=== PATIENT | male | born 1960 | race Caucasian/White ===

== ENCOUNTER 2016-05-27 08:34 | Inpatient (IN) | payer OTHER ==
[2016-05-27] MEDS ORDERED: ONDANSETRON 4 MG/2ML 2 ML VIAL ONE (08:40)
[2016-05-27] MEDS ORDERED: HYDROMORPHONE HCL 1 MG/ML SYRINGE ONE ×2 (08:40→09:40)
--- NOTE | 2016-05-27 09:38 | RAD ---
LEFT FEMUR 2 VIEWS HISTORY: Status post fall. COMPARISONS: None. TECHNIQUE: Frontal and crosstable lateral views of the left hip. ALIGNMENT: Normal alignment at the knee. FRACTURE: Comminuted intertrochanteric fracture with separate lesser and greater trochanteric fracture fragments. There is associated varus angulation of the femoral shaft. SOFT TISSUES: Associated soft tissue swelling. RADIOOPAQUE FOREIGN BODY: None. IMPRESSION: Intertrochanteric fracture of the left proximal femur with associated varus angulation.
--- NOTE | 2016-05-27 09:38 | RAD ---
PORTABLE CHEST RADIOGRAPH HISTORY: Left-sided hip fracture. Frontal portable chest radiograph dated 05/27/2016.. COMPARISON: None. FINDINGS: FOCAL AIRSPACE OPACITY: No gross airspace consolidation. PLEURAL EFFUSION: None. CARDIOMEDIASTINAL SILHOUETTE: Nonenlarged. PNEUMOTHORAX: None identified. OSSEOUS STRUCTURES: No grossly destructive lesions. IMPRESSION: No acute cardiopulmonary process noted.
--- NOTE | 2016-05-27 09:40 | RAD ---
AP PELVIS HISTORY: Status post fall. Frontal view of the pelvis. PELVIC RING: Grossly intact. HIP ALIGNMENT: Grossly unremarkable. HIP JOINT SPACES: Preserved. FRACTURE: Comminuted intertrochanteric fracture of the left proximal femur with varus angulation of the femoral shaft. IMPRESSION: Comminuted intertrochanteric fracture of the left proximal femur with associated varus angulation.
[2016-05-27 10:25] LABS: ABSOLUTE NEUTROPHIL COUNT 9.1 K/mm3 (1.8-7.7); BASO % 0.2 % (0.2-1.0); HEMATOCRIT 41.4 % (32.0-52.0); HEMOGLOBIN 14.4 gm/l (14.0-18.0); IMM NEUT # 0.1 K/mm3 (0-0.2); IMM NEUT% 0.5 % (0-1); LYMPH # 0.8 (1.0-4.8); LYMPH % 7.8 % (15-45); MEAN CELL VOLUME 94.3 fl (80.0-94.0); MEAN CORPUSCULAR HEMOGLOBIN 32.8 pg (27.0-31.0); MEAN CORPUSCULAR HGB CONC 34.8 g/dl (33.0-37.0); MEAN PLATELET VOLUME 9.3 fl (7.4-10.4); MONO # 0.8 (0.0-0.8); MONO % 7.5 % (4-12); PLATELET COUNT 278 K/mm3 (130-400); RED CELL DISTRIBUTION WIDTH 11.9 % (11.5-14.5)
[2016-05-27 10:42] LABS: ALB/GLOB RATIO 1.3 (>1.0); ALBUMIN 4.3 gm/dL (3.5-5.7); CALCIUM 9.2 mg/dL (8.6-10.3)
[2016-05-27] MEDS ORDERED: HYDROMORPHONE HCL 1 MG/ML SYRINGE IV PRN (11:57)
[2016-05-27] MEDS ORDERED: ONDANSETRON 4 MG/2ML 2 ML VIAL IV PRN (11:58)
[2016-05-27] MEDS ORDERED: PUMP TUBING ONE (12:00)
[2016-05-27] MEDS: SODIUM CHLORIDE 0.9% 1,000 ML IV SCH ×2 (12:07→20:54)
[2016-05-27] MEDS: HYDROMORPHONE HCL 2 MG/ML SYRINGE IV PRN ×3 (14:55→22:28)
[2016-05-27 15:15] VITALS: BMI 28.6
[2016-05-27] MEDS ORDERED: MAGNESIUM HYDROXIDE 30 ML UDCUP PO PRN (16:16)
[2016-05-27] MEDS ORDERED: SODIUM CHLORIDE 0.9% 100 ML IV PRN (16:16)
[2016-05-27] MEDS ORDERED: BISACODYL 10 MG SUP PR PRN (16:16)
[2016-05-27] MEDS ORDERED: BISACODYL 5 MG TABLET.EC PO PRN (16:16)
[2016-05-27] MEDS ORDERED: ACETAMINOPHEN 325 MG TABLET PO PRN (16:16)
[2016-05-27] MEDS ORDERED: BLISTEX LIPSTICK 1 EACH TP PRN (16:16)
[2016-05-27] MEDS ORDERED: MENTHOL/CETYLPYRD 1 EACH LOZENGE PO PRN (16:16)
[2016-05-27] MEDS ORDERED: ALBUTEROL NEB 2.5 MG/3 ML VIAL.NEB NEB PRN (16:19)
[2016-05-27 16:52] LABS: SPECIFIC GRAVITY 1.025 (1.001-1.030); URINE BILIRUBIN NEGATIVE (NEGATIVE); URINE BLOOD NEGATIVE (NEGATIVE); URINE GLUCOSE (UA) NEGATIVE (NEGATIVE); URINE LEUKOCYTE ESTERASE NEGATIVE (NEGATIVE); URINE NITRITE NEGATIVE (NEGATIVE); URINE PROTEIN NEGATIVE (NEGATIVE); URINE UROBILINOGEN NORMAL (0-1 mg/dl)
[2016-05-27 16:55] LABS: URINE APPEARANCE CLEAR; URINE COLOR YELLOW
[2016-05-27 17:08] LABS: URINE RBC 0 /hpf; URINE WBC 0-2 /hpf
[2016-05-27 17:09] LABS: URINE AMORPHOUS SEDIMENT FEW; URINE BACTERIA RARE; URINE EPITHELIAL CELLS 0-2 /hpf; URINE MUCUS 1+
[2016-05-27] MEDS: DOCUSATE SODIUM 100 MG CAPSULE PO SCH (20:56)
--- NOTE | 2016-05-27 22:40 | HP ---
OSCAR LIRIANO [id number] ADMIT DATE: 05/27/2016 CHIEF COMPLAINT: Fall and hip pain. HISTORY OF PRESENT ILLNESS: Oscar is a 55-year-old otherwise healthy male who has not been to a physician in years. He lives up by [employer] [employer]. On the evening of 05/26/2016 at around 10:00 P.M., he had walked down his long driveway to where his pickup was parked since he was unable to get up the driveway in the snow. He was walking down there to retrieve a coffee cup. When he got down there he slipped and fell and landed on his left hip. He had immediate pain and was unable to ambulate. He was able, however, to crawl his way back to his pickup truck and crawl in. There were some blankets as well as a candle in the pickup truck and he was able to stay warm overnight in the pickup truck using these. He did not have the keys to the truck and he was unable to call for help. On the morning then of 05/27/2016 he was able to honk and flash lights to get attention of neighbors who then found him, bilingual case manager were called, and he was subsequently transferred to [facility]. In the ER he was found to be a bit cold, but not hypothermic. He had a left intertrochanteric hip fracture noted. He was subsequently admitted to the Hospitalist Service for medical clearance pending orthopedic consult. REVIEW OF SYSTEMS: Otherwise negative. PAST MEDICAL HISTORY: None. PAST SURGICAL HISTORY: Tonsillectomy and adenoidectomy as a child. ALLERGIES: No known drug allergies. CURRENT MEDICATIONS: None. SOCIAL HISTORY: He smokes about one to two packs a day of cigarettes and has for the last 30 years or so. Occasionally he smokes marijuana. Occasionally he drinks alcohol. He lives alone up near [employer]. He has a son in [place]. No other family. 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 FAMILY HISTORY: Negative. OBJECTIVE: VITAL SIGNS: Stable. He is afebrile. GENERAL: A well-developed and well-nourished male. He is a bit disheveled and poorly groomed, but otherwise in no distress. HEENT: Benign. Oropharynx is moist, with poor dentition. NECK: Supple. No lymphadenopathy. No JVD. LUNGS: Clear. HEART: Regular. ABDOMEN: Soft. EXTREMITIES: Left leg is foreshortened and externally rotated. He is neurovascularly intact otherwise. LABS: CBC with a white count of 10.8, hemoglobin 14.4, hematocrit of 41.4, and platelets of 278. Chemistry panel; sodium 132, potassium 4.7, chloride 103, carbon dioxide 21, BUN of 23, creatinine 1.0, and glucose 130. Urinalysis is pending. EKG: Shows sinus tachycardia, but no ST or T-wave abnormalities. IMAGING: Normal cardiac silhouette. No infiltrates or effusions. Pelvic x-ray shows a left intertrochanteric hip fracture. ASSESSMENT: Ground-level fall, with left intertrochanteric hip fracture. PLAN: He is cleared for surgery. Orthopedics to evaluate. Anticipate going to the operating room in the morning. Will keep him NPO after midnight. Otherwise supportive care, with IV medications as needed for pain and nausea. DVT prophylaxis will be as per orthopedics. Further care as dictated by clinical course.
[2016-05-28] MEDS: HYDROMORPHONE HCL 2 MG/ML SYRINGE IV PRN ×5 (02:35→20:22)
[2016-05-28] MEDS: SODIUM CHLORIDE 0.9% 1,000 ML IV SCH ×2 (05:30→16:59)
[2016-05-28 07:19] LABS: HEMATOCRIT 37.1 % (32.0-52.0); HEMOGLOBIN 12.8 gm/l (14.0-18.0); MEAN CELL VOLUME 96.6 fl (80.0-94.0); MEAN CORPUSCULAR HEMOGLOBIN 33.3 pg (27.0-31.0); MEAN CORPUSCULAR HGB CONC 34.5 g/dl (33.0-37.0); RED CELL DISTRIBUTION WIDTH 12.2 % (11.5-14.5)
[2016-05-28 07:30] LABS: CALCIUM 8.9 mg/dL (8.6-10.3)
[2016-05-28] MEDS: DOCUSATE SODIUM 100 MG CAPSULE PO SCH ×2 (10:00→20:22)
[2016-05-28] MEDS: PANTOPRAZOLE 40 MG TABLET DR PO SCH (10:00)
--- NOTE | 2016-05-28 10:21 | CONS ---
Oscar Hart [id number] DATE OF CONSULTATION: 05/28/2016 HISTORY: This is a 55-year-old gentleman admitted by the hospitalist service for a fall with onset of hip pain that occurred on the evening of 05/26/2016. He was brought to the emergency department on the morning of 05/27/2016 after he was found down by neighbors. Emergency room review and x-ray's demonstrated intertrochanteric left femur fracture. He was admitted to the hospitalist service and orthopedics was consulted. Patient reports he has no antecedent history of pain in this hip. He fell directly onto the hip while he was out in the snow. He does not have any other significant extremity complaints and he has no history of surgery in this area. REVIEW OF SYSTEMS: Otherwise negative. PAST MEDICAL HISTORY: None. PAST SURGICAL HISTORY: Tonsillectomy and adenoidectomy as a child. PHYSICAL EXAMINATION: GENERAL: This is a well developed, well nourished male in no acute distress. He is awake, alert, and conversant throughout the encounter. MUSCULOSKELETAL: Focused musculoskeletal examination demonstrates external rotation and shortening of the left lower extremity. He has well perfused leg with intact sensation. Motion at the hip is not tested secondary to his injury. He has 5/5 strength in his distal musculature on this left leg and brisk capillary refill. Review of x-ray's shows intertrochanteric left fracture and varus malalignment with what appears to be multiple fragments at this level including lesser trochanter. ASSESSMENT: A 55-year-old gentleman with a acute left intertrochanteric hip fracture who presented to the hospital approximately 16 hours out from his injury. PLAN: After discussion with the patient, the plan will be for closed reduction and intramedullary nailing with a cephalomedullary device to allow him to begin weightbearing as soon as possible. He will need to stay with friends after he leaves the hospital because he is not going to be able to take care of everything by himself at home especially with the difficult to assess living situation there. In the meantime will get him up with physical therapy once he has his surgery done and he will be partial weightbearing. I did discuss the possibility that given the comminution of his fracture it may have compromised his vascular supply to the head of the femur. This is an intertrochanteric fracture, no a basilar or a true femoral neck fracture, so that risk is significantly decreased and in addition he presented to the hospital well beyond the normal desired 6 hour window for addressing an intracapsular hip fracture which is the reason that we felt it was appropriate to delay until the day after admission to ensure that he was medically cleared. He understands these risks and the possibility of further complications down the road and he is eager to proceed with surgery. Informed consent was obtained and documented in the chart. He is going to be taken to the operating room today for a postdated procedure. JOB: [id number]
[2016-05-28] MEDS ORDERED: LACTATED RINGERS 1,000 ML ONE (10:53)
[2016-05-28] MEDS ORDERED: FENTANYL 100 MCG/2 ML VIAL ONE (12:23)
[2016-05-28] MEDS ORDERED: MIDAZOLAM HCL 1 MG/ML 2ML VIAL ONE (12:23)
[2016-05-28] MEDS ORDERED: BUPIVACAINE 0.5% (PRES FREE) 30 ML VIAL ONE (12:31)
[2016-05-28] MEDS ORDERED: SPINAL PROCEDURAL TRAY 1 EACH ONE (12:31)
[2016-05-28] MEDS ORDERED: KETAMINE HCL 50 MG/ML 1 ML DOSE ONE (12:33)
[2016-05-28] MEDS ORDERED: PROPOFOL 20 ML IV ONE ×3 (13:13→13:19)
[2016-05-28] MEDS ORDERED: CEFAZOLIN SODIUM 1,000 MG VIAL ONE (13:15)
[2016-05-28] MEDS ORDERED: PROMETHAZINE HCL 25 MG/ML VIAL IM PRN (14:15)
[2016-05-28] MEDS ORDERED: MORPHINE SULFATE 4 MG/ML SYRINGE IV PRN (14:15)
[2016-05-28] MEDS ORDERED: ONDANSETRON 4 MG/2ML 2 ML VIAL IV PRN ×2 (14:15→16:05)
[2016-05-28] MEDS ORDERED: FENTANYL 100 MCG/2 ML VIAL IV PRN (14:15)
[2016-05-28] MEDS ORDERED: LACTATED RINGERS 1,000 ML IV SCH (14:15)
--- NOTE | 2016-05-28 15:18 | PCMBPN ---
Brief Post Op Note: Date of Procedure: 05/28/16 Start Time: 1300 Preoperative Diagnosis: 1. left femur intertrochanteric fracture Postoperative Diagnosis: 1. Same Procedure: left femur IM nail with cephalomedullary screw Surgeon: Elvin Barr MD Assist: Antonette Hwang Anesthesia: Bert Rees (spinal) Findings: as above Condition: stable to PACU Complications: none IV Fluids: 1000 mLs of LR Urine Output: 200 mLs Estimated Blood Loss: 100 mLs Tourniquet Time: none Specimens: none Implants: [employer] TFN [id number] nail, 130 deg with 105mm helical blade Drains: none Elvin Barr MD 5
--- NOTE | 2016-05-28 15:42 | RAD ---
Examination: HIP LEFT 2 VIEWS PORTABLE Clinical indication: ORIF intertrochanteric fracture. Fluoroscopic assistance provided. Comparisons: 05/27/2016. Findings: Fluoroscopic assistance was provided for ORIF intertrochanteric fracture left hip. Fluoroscopy time was 223.3 seconds. 3 fluoroscopic images were obtained. Submitted images exhibit a compression screw with a long intramedullary fixation crystal is fixed by 2 distal fixation screws traversing the femoral neck and diaphysis. Moderately comminuted intertrochanteric fracture is noted. Alignment is near anatomic. IMPRESSION: Fluoroscopic assistance provided as described above. There is satisfactory radiographic positioning following ORIF intertrochanteric fracture.
--- NOTE | 2016-05-28 15:49 | RAD ---
EXAMINATION : FEMUR LEFT HISTORY: Status post ORIF intertrochanteric fracture left femur. Subsequent encounter. COMPARISONS: Prior study 05/27/2016. Fluoroscopy of 05/28/2016. TECHNIQUE: 2 views of the left femur were obtained. FINDINGS: Comminuted intertrochanteric fracture of the proximal left femur is again noted. There is a butterfly fragment of the lesser trochanter. There is a compression screw and intramedullary fixation crystal with appears satisfactorily positioned. Alignment is near anatomic. Soft tissue changes but with recent surgery are noted. IMPRESSION: Satisfactory immediate postoperative appearance ORIF comminuted intertrochanteric fracture proximal left femur.
[2016-05-28] MEDS ORDERED: MENTHOL/CETYLPYRD 1 EACH LOZENGE PO PRN (16:05)
[2016-05-28] MEDS ORDERED: BLISTEX LIPSTICK 1 EACH TP PRN (16:05)
[2016-05-28] MEDS ORDERED: PUMP TUBING ONE (16:54)
--- NOTE | 2016-05-28 18:58 | PDOC43 ---
- Subjective Chief Complaint: Left leg pain Subjective: Reports Pain Tolerable, Denies Vomiting, Denies Fever - Objective Vital Signs Temperature 98.2 F 05/28/16 16:30 Pulse Rate 104 05/28/16 17:45 Respiratory Rate 20 05/28/16 17:45 Blood Pressure 112/75 05/28/16 17:45 O2 Saturation by Pulse Oximetry 97 05/28/16 17:45 Oxygen Delivery Method Nasal Cannula Oxygen Flow Rate 2 Intake and Output 05/27/16 05/28/16 05/29/16 06:59 06:59 06:59 Intake Total 1040 1150 Output Total 675 350 Balance 365 800 General: Alert, Oriented x3, Cooperative, No Acute Distress HEENT: Mucous membr. moist/pink Lungs: Clear to Auscultation Bilaterally Cardiovascular: Regular Rate and Rhythm Abdomen: Soft, Normal Bowel Sounds, Non-Distended, No Tenderness Extremities: No Edema Peripheral Pulses: Dorsalis Pedis (L): 2+, Dorsalis Pedis (R): 2+ Skin: Warm, Dry, Intact Wound: Dressing Clean/Dry/Intact Laboratory 05/28/16 06:34 05/28/16 06:34 05/28/16 06:34 RBC 3.84 L MCV 96.6 H MCH 33.3 H Current Medications: Current meds reviewed in EMR. - Problems: Assessment/Plan (1) Femur fracture, left Qualifiers: Encounter type: initial encounter Femur location: intertrochanteric Fracture type: closed Fracture alignment: displaced Qualifier Code: ( S72.142A) Displaced intertrochanteric fracture of left femur, initial encounter for closed fracture Status: Acute Assessment/Plan: S/P ORIF this am by Dr Barr, doing well, no active medical problems- management per ortho team, will follow VTE Prophylaxis: [facility]. measures Disposition: To be determined
[2016-05-28] MEDS: OXYCODONE/ACETAMINOPHEN 5/325 MG TABLET PO PRN (19:16)
[2016-05-29] MEDS: HYDROMORPHONE HCL 2 MG/ML SYRINGE IV PRN (00:31)
[2016-05-29] MEDS: OXYCODONE/ACETAMINOPHEN 5/325 MG TABLET PO PRN ×5 (00:31→21:11)
[2016-05-29] MEDS: TRAZODONE HCL 50 MG TABLET PO PRN (00:39)
[2016-05-29] MEDS: SODIUM CHLORIDE 0.9% 1,000 ML IV SCH (07:33)
[2016-05-29] MEDS: ASPIRIN (ENTERIC COATED) 325 MG TABLET.EC PO SCH (08:29)
[2016-05-29] MEDS: PANTOPRAZOLE 40 MG TABLET DR PO SCH (08:29)
[2016-05-29] MEDS: DOCUSATE SODIUM 100 MG CAPSULE PO SCH ×2 (08:30→21:12)
[2016-05-29] MEDS ORDERED: SODIUM CHLORIDE 0.9% 500 ML IV SCH (13:15)
[2016-05-29] MEDS ORDERED: PUMP TUBING ONE (14:00)
--- NOTE | 2016-05-29 15:31 | PDOC43 ---
- Subjective Chief Complaint: Left leg pain elevated heart rate worse with standing today Subjective: Reports Pain Tolerable, Reports Tolerating Diet Well, Denies Vomiting, Denies Fever - Objective Vital Signs Temperature 98.0 F 05/29/16 11:54 Pulse Rate 105 05/29/16 11:54 Respiratory Rate 18 05/29/16 11:54 Blood Pressure 123/78 05/29/16 11:54 O2 Saturation by Pulse Oximetry 92 05/29/16 11:54 Oxygen Delivery Method Room Air Oxygen Flow Rate 0 Intake and Output 05/28/16 05/29/16 05/30/16 06:59 06:59 06:59 Intake Total 1040 3982 Output Total 675 800 Balance 365 3182 General: Alert, Oriented x3, Cooperative, No Acute Distress HEENT: Mucous membr. moist/pink Lungs: Clear to Auscultation Bilaterally Cardiovascular: Other (reg. tachy) Abdomen: Soft, Normal Bowel Sounds, Non-Distended, No Tenderness Extremities: Other (some early blistering of tips of digits 1,2,3 on left hand) , No Edema Peripheral Pulses: Dorsalis Pedis (L): 2+, Dorsalis Pedis (R): 2+ Skin: Warm, Dry, Erythema (some early blistering and erythema involving tips of digits 1,2,3) Neurological: Normal Speech, Normal Reflexes, Cranial Nerves 3-12 Intact Psych/Mental Status: Normal Affect Laboratory 05/28/16 06:34 05/28/16 06:34 Current Medications: Current meds reviewed in EMR. - Problems: Assessment/Plan (1) Femur fracture, left Qualifiers: Encounter type: initial encounter Femur location: intertrochanteric Fracture type: closed Fracture alignment: displaced Qualifier Code: ( S72.142A) Displaced intertrochanteric fracture of left femur, initial encounter for closed fracture Status: Acute Assessment/Plan: S/P ORIF on 05/[address] Barr, doing well-management per ortho team, will follow (2) Tachycardia with heart rate 100-120 beats per minute Status: Acute Assessment/Plan: Sinus tachy suspect due to hypovolemia, alcohol usage Hx does not support high likelihood of alcohol withdrawal-fluid bolus and follow closely VTE [facility] plus [facility] Disposition: Plan is to go home in 1-2 days with supportive friends-awaiting full PT/OT assessments
[2016-05-30] MEDS: OXYCODONE/ACETAMINOPHEN 5/325 MG TABLET PO PRN ×5 (02:22→20:04)
[2016-05-30] MEDS: ASPIRIN (ENTERIC COATED) 325 MG TABLET.EC PO SCH (09:17)
[2016-05-30] MEDS: DOCUSATE SODIUM 100 MG CAPSULE PO SCH ×2 (09:17→20:04)
[2016-05-30] MEDS: PANTOPRAZOLE 40 MG TABLET DR PO SCH (09:18)
--- NOTE | 2016-05-30 12:25 | PDOC43 ---
- Subjective Chief Complaint: Left leg pain Doing well, leg pain has worsened today. His knee and ankle are sore after working with therapy. Denies any shortness of breath, chest pain or abdominal pain. Has flatus no bowel movement yet. Subjective: Reports Pain Tolerable, Reports Tolerating Diet Well, Reports Adequate Oral Intake, Reports Flatus, Reports Urinating Without Difficulty, Denies Bowel Movement, Denies Shortness of Breath, Denies Cough, Denies Chest Pain, Denies Abdominal Pain, Denies Nausea, Denies Vomiting - Objective Vital Signs Temperature 99.4 F 05/30/16 08:08 Pulse Rate 101 05/30/16 08:08 Respiratory Rate 18 05/30/16 08:08 Blood Pressure 115/78 05/30/16 08:08 O2 Saturation by Pulse Oximetry 98 05/30/16 08:56 Oxygen Delivery Method Room Air Oxygen Flow Rate 0 Intake and Output 05/28/16 05/29/16 05/30/16 23:59 23:59 23:59 Intake Total 2190 4432 1600 Output Total 800 450 500 Balance 1390 3982 1100 General: Alert, Oriented x3, Cooperative, No Acute Distress HEENT: Atraumatic, PERRLA, EOMI, Mucous membr. moist/pink Lungs: Clear to Auscultation Bilaterally, Normal Air Movement, Other (no crackle or wheeze) Cardiovascular: Regular Rate and Rhythm, Normal S1, Normal S2 Abdomen: Soft, Mild Distention, No Rigid, No Tenderness, No Rebounding Extremities: Tenderness, No Cyanosis, No Edema Peripheral Pulses: Posterior Tibialis (L): 2+, Posterior Tibialis (R): 2+ Neurological: Normal Speech Psych/Mental Status: Normal Mood Laboratory 05/28/16 06:34 05/28/16 06:34 Current Medications: Current meds reviewed in EMR. - Problems: Assessment/Plan (1) Femur fracture, left Qualifiers: Encounter type: initial encounter Femur location: intertrochanteric Fracture type: closed Fracture alignment: displaced Qualifier Code: ( S72.142A) Displaced intertrochanteric fracture of left femur, initial encounter for closed fracture Status: Acute Assessment/Plan: S/P ORIF on 05/[address] Barr, doing well-management per ortho team, will follow (2) Frostbite of left upper extremity Status: Acute Assessment/Plan: treat symptomatically (3) Tachycardia with heart rate 100-120 beats per minute Status: Acute Assessment/Plan: Sinus tachy suspect due to hypovolemia, alcohol usage Hx does not support high likelihood of alcohol withdrawal-fluid bolus and follow closely VTE Prophylaxis: [facility]. measures plus aspirin Disposition: Plan is to go home in 1-2 days with supportive friends-awaiting full PT/OT assessments
[2016-05-30] MEDS: TRAZODONE HCL 50 MG TABLET PO PRN (20:04)
[2016-05-31] MEDS: OXYCODONE/ACETAMINOPHEN 5/325 MG TABLET PO PRN ×4 (00:01→17:21)
[2016-05-31] MEDS: PANTOPRAZOLE 40 MG TABLET DR PO SCH (08:38)
[2016-05-31] MEDS: ASPIRIN (ENTERIC COATED) 325 MG TABLET.EC PO SCH (08:38)
[2016-05-31] MEDS: DOCUSATE SODIUM 100 MG CAPSULE PO SCH (08:38)
--- NOTE | 2016-05-31 12:09 | PDOC43 ---
- Subjective Chief Complaint: Left leg pain RN reports pt ambulating ok, eating ok. Believed to have had BM. Patient reports eager to go home. No c/o. Fingers healing well. Pt reports swelling of L thigh improving, but still noticeable. - Objective Vital Signs Temperature 98.2 F 05/31/16 07:56 Pulse Rate 86 05/31/16 07:56 Respiratory Rate 16 05/31/16 09:00 Blood Pressure 143/92 05/31/16 07:56 O2 Saturation by Pulse Oximetry 96 05/31/16 08:00 Oxygen Delivery Method Room Air Oxygen Flow Rate 0 Vital Signs Last 12 Hours Temp Pulse Resp BP Pulse Ox 05/31/16 09:00 16 05/31/16 08:00 96 05/31/16 07:56 98.2 F 86 16 143/92 96 05/31/16 02:00 97.9 F 102 20 122/80 96 Intake and Output 05/29/16 05/30/16 05/31/16 23:59 23:59 23:59 Intake Total 4432 3200 800 Output Total 450 2675 1150 Balance 3982 525 -350 General: Alert HEENT: Atraumatic Lungs: Clear to Auscultation Bilaterally, Normal Air Movement Cardiovascular: Regular Rate and Rhythm Abdomen: Soft, Normal Bowel Sounds, Non-Distended Extremities: Other (L fingertips with mild ecchymoses at tips, c/w frostbite, healing appropriately. L thigh with some fullness, not eileen tender. Dressing CDI. Lower legs unrem bilat.) Skin: Normal Color Wound: Dressing Clean/Dry/Intact Neurological: Normal Speech Psych/Mental Status: Normal Affect Laboratory 05/28/16 06:34 05/28/16 06:34 Current Medications: Current meds reviewed in EMR. Active Medications Acetaminophen (Tylenol) 650 mg PO Q6H PRN PRN Reason: Pain or Temperature > 100.5 F Albuterol Sulfate (Ventolin Inhalation Solution (Dose)) 2.5 mg NEB Q2H PRN PRN Reason: Wheezing Aspirin (Ecotrin) 325 mg PO DAILY SANTY Last Admin: 05/31/16 08:38 Dose: 325 mg Benzocaine/Menthol (Cepacol) 1 each PO PRN PRN PRN Reason: Sore Throat Bisacodyl (Dulcolax) 10 mg [place] DAILY PRN PRN Reason: Constipation Bisacodyl (Dulcolax) 5 mg PO DAILY PRN PRN Reason: Constipation Docusate Sodium (Colace) 100 mg PO BID [facility] Last Admin: 05/31/16 08:38 Dose: 100 mg Hydromorphone HCl (Dilaudid) 1 - 2 mg IV Q2H PRN PRN Reason: Pain Last Admin: 05/27/16 12:06 Dose: 1 mg Hydromorphone HCl (Dilaudid) 1 - 2 mg IV Q2H PRN PRN Reason: Pain Last Admin: 05/29/16 00:31 Dose: 2 mg Sodium Chloride (Sodium Chloride 0.9%) 100 mls @ 25 mls/hr IV PRN PRN PRN Reason: Flush Magnesium Hydroxide (Milk Of Magnesia) 30 ml PO DAILY PRN PRN Reason: Constipation Last Admin: 05/30/16 09:18 Dose: 30 ml Ondansetron HCl (Zofran) 4 mg IV Q6H PRN PRN Reason: Nausea/Vomiting Oxycodone/Acetaminophen (Percocet 5/325) 1 - 2 tab PO Q4H PRN PRN Reason: Pain (Moderate) Last Admin: 05/31/16 08:44 Dose: 2 tab Pantoprazole Sodium (Protonix) 40 mg PO DAILY [facility] Last Admin: 05/31/16 08:38 Dose: 40 mg Petrolatum/Paraffin/Mineral Oil (Blistex) 1 each TP PRN PRN PRN Reason: Dry and/or chapped lips Sodium Chloride (Normal Saline 10ml Flush) 10 ml IV Q8HR [facility] Last Admin: 05/31/16 08:38 Dose: 10 ml Sodium Chloride (Normal Saline 10ml Flush) 10 ml IV PRN PRN Last Admin: 05/29/16 14:05 Dose: 10 ml Trazodone HCl (Desyrel) 25 mg PO BEDTIME PRN PRN Reason: Insomnia Last Admin: 05/30/16 20:04 Dose: 25 mg - Problems: Assessment/Plan (1) Femur fracture, left Qualifiers: Encounter type: initial encounter Femur location: intertrochanteric Fracture type: closed Fracture alignment: displaced Qualifier Code: ( S72.142A) Displaced intertrochanteric fracture of left femur, initial encounter for closed fracture Status: Acute Assessment/Plan: S/P ORIF on 1/[address] Barr, doing well-management per ortho team, will follow Anticipate DC to friend's today 05/31 (2) Frostbite of left upper extremity Status: Acute Assessment/Plan: treat symptomatically (3) Tachycardia with heart rate 100-120 beats per minute Status: Resolved Assessment/Plan: Sinus tachy suspect due to hypovolemia. Not felt to be in alcohol withdrawal. VTE Prophylaxis: [facility]. measures plus aspirin Disposition: Plan is to go home with supportive friends-appreciate PT/OT assessments
[2016-05-31 13:48] VITALS: BP 142/95
--- NOTE | 2016-05-31 13:53 | PDOC43 ---
- Subjective Subjective: Reports Pain Tolerable, Denies Flatus, Denies Chest Pain, Denies Shortness of Breath, Denies Nausea, Denies Vomiting - Objective Vital Signs Temperature 99.4 F 05/30/16 08:08 Pulse Rate 101 05/30/16 08:08 Respiratory Rate 18 05/30/16 08:08 Blood Pressure 115/78 05/30/16 08:08 O2 Saturation by Pulse Oximetry 98 05/30/16 08:56 Oxygen Delivery Method Room Air Oxygen Flow Rate 0 Laboratory 05/28/16 06:34 05/28/16 06:34 Active Medication Orders Category Date Time Status Acetaminophen [Tylenol] Med 05/27/16 16:16 Active 650 mg PO Q6H PRN Albuterol Sulf Neb 2.5mg/3ml [Ventolin Inhalation Med 05/27/16 16:19 Active Solution (Dose)] 2.5 mg NEB Q2H PRN Aspirin (Enteric Coated) [Ecotrin] Med 05/29/16 09:00 Active 325 mg PO DAILY Bisacodyl [Dulcolax] Med 05/27/16 16:16 Active 10 mg [place] DAILY PRN Bisacodyl [Dulcolax] Med 05/27/16 16:16 Active 5 mg PO DAILY PRN Docusate Sodium [Colace] Med 05/27/16 21:00 Active 100 mg PO BID Hydromorphone HCl [Dilaudid] Med 05/27/16 11:57 Active 1 - 2 mg IV Q2H PRN Hydromorphone HCl [Dilaudid] Med 05/27/16 12:03 Active 1 - 2 mg IV Q2H PRN Lip [place] [Blistex] Med 05/28/16 16:05 Active 1 each TP PRN PRN Magnesium Hydroxide [Milk of Magnesia] Med 05/27/16 16:16 Active 30 ml PO DAILY PRN Menthol/Cetylpyridinium [Cepacol] Med 05/28/16 16:05 Active 1 each PO PRN PRN Ondansetron 4 mg/2ml Vial [Zofran] Med 05/28/16 16:05 Active 4 mg IV Q6H PRN Oxycodone HCl/Acetaminophen [Percocet 5/325] Med 05/28/16 16:05 Active 1 - 2 tab PO Q4H PRN Pantoprazole Sodium [Protonix] Med 05/28/16 09:00 Active 40 mg PO DAILY Sodium Chloride 0.9% 100 ml Med 05/27/16 16:16 Active IV PRN Sodium Chloride 0.9% Flush [Normal Saline 10ml Flush] Med 05/27/16 11:16 Active 10 ml IV PRN PRN Sodium Chloride 0.9% Flush [Normal Saline 10ml Flush] Med 05/27/16 17:00 Active 10 ml IV Q8HR Trazodone HCl [Desyrel] Med 05/28/16 16:05 Active 25 mg PO BEDTIME PRN Intake and Output 05/29/16 05/30/16 05/31/16 06:59 06:59 06:59 Intake Total 3982 3200 Output Total 800 500 Balance 3182 2700 General: No Acute Distress Neurological: Grossly Intact, Alert, Oriented x 4 Psych/Mental Status: Normal Affect Peripheral Pulses: Left Posterior Tibialis: 3+/4+, Left Dorsalis Pedis: 3+/4+ - Left Lower Extremity Incision: Drainage, Well Approximated, Reynolds Intact, No Erythema, No Rash Motor: Extensor Hallucis Longus: 5/5, Tibialis Anterior: 5/5, Gastrocnemius: 5/5 Gross Sensation to Light Touch: Present: Superficial Peroneal Nerve, Sural Nerve , Saphenous Nerve - Problems (1) Femur fracture, left Qualifiers: Encounter type: initial encounter Femur location: intertrochanteric Fracture type: closed Fracture alignment: displaced Qualifier Code: ( S72.142A) Displaced intertrochanteric fracture of left femur, initial encounter for closed fracture Status: Acute - Additional Comments POD #2 s/p ORIF intertrochanteric fracture left femur t. 99.4 Experiencing some post-op pain with movement. Left hip dressing changed. Mild drainage noted. Will work with PT to gait train. Does not to go to SNF, prefers to move in with friend. Likely transfer on Wednesday. Continue with pain management. Appreciate hospitalist involvement.
--- NOTE | 2016-05-31 14:03 | PDOC43 ---
- Subjective Subjective: Reports Pain Tolerable, Denies Flatus, Denies Chest Pain, Denies Shortness of Breath, Denies Nausea, Denies Vomiting, Denies Fever - Objective Vital Signs Temperature 98.2 F 05/31/16 13:47 Pulse Rate 93 05/31/16 13:47 Respiratory Rate 17 05/31/16 13:47 Blood Pressure 142/95 05/31/16 13:47 O2 Saturation by Pulse Oximetry 98 05/31/16 13:47 Oxygen Delivery Method Room Air Oxygen Flow Rate 0 Laboratory 05/28/16 06:34 05/28/16 06:34 Active Medication Orders Category Date Time Status Acetaminophen [Tylenol] Med 05/27/16 16:16 Active 650 mg PO Q6H PRN Albuterol Sulf Neb 2.5mg/3ml [Ventolin Inhalation Med 05/27/16 16:19 Active Solution (Dose)] 2.5 mg NEB Q2H PRN Aspirin (Enteric Coated) [Ecotrin] Med 05/29/16 09:00 Active 325 mg PO DAILY Bisacodyl [Dulcolax] Med 05/27/16 16:16 Active 10 mg CO DAILY PRN Bisacodyl [Dulcolax] Med 05/27/16 16:16 Active 5 mg PO DAILY PRN Docusate Sodium [Colace] Med 05/27/16 21:00 Active 100 mg PO BID Hydromorphone HCl [Dilaudid] Med 05/27/16 11:57 Active 1 - 2 mg IV Q2H PRN Hydromorphone HCl [Dilaudid] Med 05/27/16 12:03 Active 1 - 2 mg IV Q2H PRN Lip [place] [Blistex] Med 05/28/16 16:05 Active 1 each TP PRN PRN Magnesium Hydroxide [Milk of Magnesia] Med 05/27/16 16:16 Active 30 ml PO DAILY PRN Menthol/Cetylpyridinium [Cepacol] Med 05/28/16 16:05 Active 1 each PO PRN PRN Ondansetron 4 mg/2ml Vial [Zofran] Med 05/28/16 16:05 Active 4 mg IV Q6H PRN Oxycodone HCl/Acetaminophen [Percocet 5/325] Med 05/28/16 16:05 Active 1 - 2 tab PO Q4H PRN Pantoprazole Sodium [Protonix] Med 05/28/16 09:00 Active 40 mg PO DAILY Sodium Chloride 0.9% 100 ml Med 05/27/16 16:16 Active IV PRN Sodium Chloride 0.9% Flush [Normal Saline 10ml Flush] Med 05/27/16 11:16 Active 10 ml IV PRN PRN Sodium Chloride 0.9% Flush [Normal Saline 10ml Flush] Med 05/27/16 17:00 Active 10 ml IV Q8HR Trazodone HCl [Desyrel] Med 05/28/16 16:05 Active 25 mg PO BEDTIME PRN Intake and Output 05/30/16 05/31/16 06/01/16 06:59 06:59 06:59 Intake Total 3200 2400 Output Total 500 3325 Balance 2700 -925 General: Afebrile, No Acute Distress Skin: Normal Color, Warm, Dry Neurological: Grossly Intact, Alert, Oriented x 4 Psych/Mental Status: Normal Affect, Normal Mood Peripheral Pulses: Left Posterior Tibialis: 3+/4+, Left Dorsalis Pedis: 3+/4+ - Left Lower Extremity Incision: Dressing Clean/Dry/Intact, No Drainage Motor: Extensor Hallucis Longus: 5/5, Tibialis Anterior: 5/5, Gastrocnemius: 5/5 , Peroneals: 5/5, Quadriceps: 4/5 Gross Sensation to Light Touch: Present: Medial Plantar Nerve, Lateral Plantar Nerve, Sural Nerve - Problems (1) Femur fracture, left Qualifiers: Encounter type: initial encounter Femur location: intertrochanteric Fracture type: closed Fracture alignment: displaced Qualifier Code: ( S72.142A) Displaced intertrochanteric fracture of left femur, initial encounter for closed fracture Status: Acute - Additional Comments POD #2 s/p ORIF intertrochanteric fracture left femur t. 99.4 Experiencing some post-op pain with movement. Left hip dressing changed. Mild drainage noted. Will work with PT to gait train. Does not to go to SNF, prefers to move in with friend. Likely transfer on Wednesday. Continue with pain management. Appreciate hospitalist involvement. POD # 3 s/p ORIF intertrochanteric fracture left femur Experiencing less hip pain today. Movement improving. Pt. being discharged today; will go to friend's home. Appointment with Dr. Barr on June 13, 2016. Discharge Rxs. and instructions given to patient. Appreciate hospitalist involvement.
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
--- NOTE | 2016-06-01 12:06 | OP ---
SUSIE LIRIANO : 1960 V [id number] DATE OF PROCEDURE: May 28, 2016 PREOPERATIVE DIAGNOSIS: Left femur intertrochanteric fracture. POSTOPERATIVE DIAGNOSIS: SAME PROCEDURE: LEFT FEMUR IM NAIL WITH CEPHALOMEDULLARY SCREW SURGEON: Elvin Barr M.D. [employer] MANAGER: Antonette Hwang ANESTHESIA: Spinal per Bert Rees ESTIMATED BLOOD LOSS: 100 mL FLUIDS: 1000 mL of crystalloid URINE OUTPUT: 200 mL SPECIMENS: None TOURNIQUET TIME: None IMPLANTS: Synthes TFN 360 x 12mm nail at 130 degrees with 105mm helicon blade and 2 interlock screws distally. DRAINS: None INDICATIONS: This is a 55-year-old gentleman who came through the ED after a fall onto his left hip sustaining an intertrochanteric fracture. He was admitted by the hospitalist and cleared medically and then taken to the OR for surgery in order to restore his ability to bear weight on this injured left leg. Risks, benefits and alternatives were discussed with him at length prior to the surgery and he elected to proceed. Informed consent was obtained and documented in the chart. PROCEDURE DESCRIPTION: Patient was identified in the preop holding area, marked with an indelible marker by the OR surgeon and then taken to the OR where he was placed in a supine position on the OR table. He was rolled onto his side. Spinal anesthetic was administered. He was then positioned on the fracture table with a peroneal post in place in scissor formation. He was prepped and draped in the usual sterile fashion for surgery. All bony prominences were padded. He received perioperative antibiotics. Final operative timeout was performed and confirmed by all member of the operative team. The C-arm was draped and brought onto the field. The starting point for an IM nail for his femur was localized and then a stab incision was made and the starting guide pin was inserted into the proximal portion of the femur beginning in the piriformis fossa and entering the IM canal. Starting reamer was used over the top of this guide pin to gain access to the IM space and then our long guide pin was passed all the way down coming to rest in the physeal scar at the distal femur. Length of nail was measured and then we began reaming with flexible reamers starting with a 10 and reaming up to a 13, which gave us good chatter at the diaphysis. A 360 x 12mm TFN was loaded onto the insertion handle and impacted into the IM canal with good fit. The leg was under traction during this procedure to reduce the fracture. At this point we then checked our rotation using the proximal targeting handle, made an additional incision further down the leg to allow access for the cephalomedullary guide pin. A guide pin was driven up into the center-center position of femoral head. Length was checked and then it was drilled over with the access drill and a 105mm Helico blade was placed with adequate position within the femoral head. At this point, the proximal targeting components were removed and traction was released from the leg. The perfect circles technique was used to place 2 interlocking screws distally through stab incisions. All wounds were copiously irrigated with sterile saline and the incisions closed with nylon. A sterile dressing of Xeroform, fluffs, ABD's and Medipore tape was applied. Patient was awakened from his sedation, was transferred to a stretcher and taken postoperatively to post anesthesia care in stable condition. There were no observed intraoperative complications during the procedure. JED/bakari CC: [facility]
== END 2016-05-31 18:40 | disposition home or self-care (01) | DRG 482 ==
LOC: ED 08:34 → MS 11:12
PROVIDERS: ADMIT Family Medicine; ATTEND Family Medicine
PROC: 0QS704Z Reposition Left Upper Femur with Internal Fixation Device, Open Approach (ICD-10-PCS; principal; 2016-05-28)
DX: S72.142A Displaced intertrochanteric fracture of left femur, initial encounter for closed fracture (principal); W19.XXXA Unspecified fall, initial encounter; Y92.014 Private driveway to single-family (private) house as the place of occurrence of the external cause; X31.XXXA Exposure to excessive natural cold, initial encounter; R00.0 Tachycardia, unspecified; F17.210 Nicotine dependence, cigarettes, uncomplicated; F12.90 Cannabis use, unspecified, uncomplicated

== ENCOUNTER 2016-06-08 17:28 | Emergency (ER) | payer OTHER ==
--- NOTE | 2016-06-08 18:57 | US ---
DUPLX SCAN VEIN EXT UNI LT History: Left lower extremity swelling. Findings: Ultrasonography of the left lower extremity was performed, with grayscale color and Doppler technique utilizing evaluation of the lower extremity. There is adequate compressibility of the deep venous system without current findings of deep venous thrombosis. Normal responses are seen to augmentation and Valsalva maneuvers. Normal respiratory variation is observed as well. Impression: 1. A left lower extremity ultrasound which currently appears negative, with no current findings of deep venous thrombosis observed.
== END 2016-06-08 19:14 | disposition home or self-care (01) ==
LOC: ED 17:28
DX: T81.89XA Other complications of procedures, not elsewhere classified, initial encounter (principal); M79.89 Other specified soft tissue disorders; F17.210 Nicotine dependence, cigarettes, uncomplicated